=== PATIENT | female | born 1985 | race Caucasian/White ===

== ENCOUNTER 2019-02-24 07:33 | Outpatient (CLI) | payer BC | END 2019-02-24 07:34 | disposition home or self-care (01) | LOC: C.PAT 07:33 | DX: N20.1 Calculus of ureter (principal) ==

== ENCOUNTER 2019-02-27 09:03 | Day surgery (SDC) | payer BC ==
[2019-02-24 07:48] VITALS: BMI 48.4
[2019-02-27 09:43] VITALS: BP 111/76; PULSE 85; RESP 20; TEMP 98.6; O2SAT 97
[2019-02-27] MEDS ORDERED: Gentamicin 80 mg in 0.9% NS 0 MG/0 ML BAG IVPB ONE (13:44)
[2019-02-27] MEDS ORDERED: Ciprofloxacin 400mg/200ml D5W 0 MG/0 ML BAG IVPB ONE (13:44)
[2019-02-27] MEDS ORDERED: Iohexol 240 (50 ml) ONE (13:44)
== END 2019-02-27 14:00 | disposition home or self-care (01) ==
LOC: C.SDS 09:03
PROVIDERS: ATTEND Urology
DX: N20.1 Calculus of ureter (principal); Z53.20 Procedure and treatment not carried out because of patient's decision for unspecified reasons
CPT/HCPCS: 52000; 82948; P000X